=== PATIENT | female | born 1980 | race Caucasian/White ===

== ENCOUNTER 2022-08-20 23:44 | Emergency (ER) | payer OTHER, SELFPAY ==
[2022-08-20 23:49] VITALS: BP 131/83; PULSE 73; RESP 18; TEMP 36.6; O2SAT 99; BMI 29.7
--- NOTE | 2022-08-20 23:57 | DI.RAD.S_ITS ---
PROCEDURE: XR WRIST LT MIN 3V INDICATIONS: pain and deformity TECHNIQUE: 3 views of the wrist were acquired. COMPARISON: None. FINDINGS: Bones: There is a comminuted fracture of the distal radius with mild impaction and dorsal angulation. Fracture involves the radiocarpal and distal radioulnar joints. Soft tissues: No suspicious soft tissue calcifications. IMPRESSION: 1. Comminuted intra-articular fracture of the distal radius with mild impaction and dorsal angulation. Dictated by: Viet Castillo M.D. on 08/21/2022 at 1:08 Approved by: Viet Castillo M.D. on 08/21/2022 at 1:09
--- NOTE | 2022-08-21 00:23 | ED.GENADULT ---
HPI - General Adult General Chief complaint: Extremity Injury, Upper Stated complaint: Left wrist injury Time Seen by Provider: 08/20/22 23:59 Source: patient and family Mode of arrival: Ambulatory History of Present Illness HPI narrative: Patient is a right-hand dominant female who is here for evaluation of injuries that she sustained to her left wrist. She stated that they were at the [facility] and she tripped over [place] landing on her LEs wrist. She reports no other injuries from the event. Has discomfort with palpation or movement her left wrist. Not on anticoagulation. No prior injury to the left wrist. No intervention prior to arrival. Related Data Previous Rx's Medication Instructions Recorded hydrocodone 5 mg-acetaminophen 325 1 tab PO Q4-6H PRN pain #14 tabs 08/21/22 mg tablet ondansetron 4 mg disintegrating 4 mg PO Q6H PRN nausea and 08/21/22 tablet vomiting #10 tabs Allergies Allergy/AdvReac Type Severity Reaction Status Date / Time amoxicillin [From Augmentin] Allergy Intermediate Rash Verified 08/20/22 23:59 clavulanic acid Allergy Intermediate Rash Verified 08/20/22 23:59 [From Augmentin] promethazine [From Phenergan] AdvReac Intermediate Chills Verified 08/20/22 23:59 Review of Systems Musculoskeletal Musculoskeletal: Reports system reviewed and no additional complaints, except as documented Integumentary/Breasts Skin/Breast: Reports system reviewed and no additional complaints, except as documented Neurologic Neurologic: Reports system reviewed and no additional complaints, except as documented Patient History Social History Smoking Status: Former smoker Smoking Status: Former smoker alcohol intake frequency: a few times a week Alcohol type: wine Substance Use Type: does not use Exam Initial Vital Signs Initial Vital Signs: Vital Signs Temperature 97.9 F 08/20/22 23:49 Pulse Rate 73 08/20/22 23:49 Respiratory Rate 18 08/20/22 23:49 Blood Pressure 131/83 08/20/22 23:49 Pulse Oximetry 99 08/20/22 23:49 Oxygen Delivery Method Room Air 08/20/22 23:49 HENMT Head: normal to inspection and normocephalic Cardio Pulses: radial pulses present on the left Skin General: no rashes or lesions noted Neuro Sensory Exam: no sensory deficits noted Extrem Other: Obvious deformity to the left wrist. Left elbow left shoulder unremarkable. Procedures Orthopedic Fracture Reduction Fracture #1: Time Out Performed: Yes Side: left Fracture Reduction Location: radius Analgesia: procedural sedation Technique: direct manipulation Post Reduction X-rays Demonstrate: acceptable reduction Post-reduction neuro exam: intact Post-reduction vascular exam: intact Splint Applied: Yes Patient Tolerated Procedure: Well and No complications Orthopedic Splinting/Casting Injury #1: Side: left Upper Extremity Injury Location: forearm Upper Extremity Immobilizer: sugar tong splint Other Orthopedic Equipment: other (Sling) Post splinting neuro exam: no change Post splinting vascular exam: no change Placed by: Provider Procedural Sedation Consent signed: Yes Time out performed: Yes Indication: fracture/dislocation reduction ASA Class: II Mallampati Airway Classification: Class II Preparation: conveyor monitor applied, pulse oximeter, capnometry used, supplemental O2 applied and IV secured IV Propofol dose (mg): 150 Intraservice time/total sedation time (min): 15 ED Sedation Level: Moderate (Concious) Patient Tolerated Procedure: Well and No complications Course Orders Ordered: ED Orders 08/20/22 23:57 XR wrist LT min 3V Stat 08/21/22 01:33 XR wrist LT 2V Stat Sodium Chloride (Normal Saline 0.9%) 1,000 mls @ 125 mls/hr IV CONT JENNIFER Discontinued Medications Hydrocodone Bitart/Acetaminophen (Hydrocodone/Acet 5/325 Prepack) 1 bottle MISC SEEINSTR ONE Stop: 08/21/22 01:34 Hydromorphone HCl (Hydromorphone 1 Mg Inj) 1 mg IM NOW ONE Stop: 08/21/22 00:28 Last Admin: 08/21/22 00:30 Dose: 1 mg Documented By: Ondansetron HCl (Ondansetron 4 Mg Odt Prepack) 1 bottle MISC SEEINSTR ONE Stop: 08/21/22 01:54 Propofol (Propofol 200 Mg/20 Ml Vial) 100 mg IV NOW ONE Stop: 08/21/22 01:00 Propofol (Propofol 200 Mg/20 Ml Vial) 50 mg IV NOW ONE Stop: 08/21/22 01:34 Vital Signs Vital signs: Vital Signs - 8 hr 08/20/22 23:49 Temperature 97.9 F Pulse Rate 73 Respiratory Rate 18 Blood Pressure 131/83 Pulse Oximetry 99 Oxygen Delivery Method Room Air Medical Decision Making Imaging Data Extremity x-ray #1: Radiologist's Impression: PROCEDURE:? XR WRIST LT MIN 3V ? INDICATIONS: pain and deformity ? TECHNIQUE:? 3 views of the wrist were acquired.? ? COMPARISON:? None. ? FINDINGS:? ? Bones:? There is a comminuted fracture of the distal radius with mild impaction and dorsal angulation.? Fracture involves the radiocarpal and distal radioulnar joints. ? Soft tissues:? No suspicious soft tissue calcifications.? ? IMPRESSION:? ? 1. Comminuted intra-articular fracture of the distal radius with mild impaction and dorsal angulation. MDM Narrative Medical decision making narrative: X-ray today does show left wrist fracture. Patient was sedated and fracture reduced and splint placement as described above. Will discharge home with pain medication and return precautions and follow-up instructions. She reports no other injuries from the event. Discharge Plan Departure Patient Disposition: Home Clinical Impression: Fracture of wrist Instructions: DI for Wrist Fracture, How to Take Care of Your Splint Activity Restrictions/Additional Instructions: The splint that was placed today does need to be treated like a cast. You need to keep it on a keep it clean keep it dry. You were going to need follow-up with a orthopedic surgeon. You can do this when you return back home. If he would like to follow-up here in the local area you can contact the orthopedic doctors with a number provided below. Return to the emergency department for new or worsening symptoms. Prescriptions: New hydrocodone-acetaminophen 5-325 mg tablet 1 tab PO Q4-6H PRN (Reason: pain) Qty: 14 0RF ondansetron 4 mg tablet,disintegrating 4 mg PO Q6H PRN (Reason: nausea and vomiting) Qty: 10 0RF Referrals: Judy Couch MD [Physician] - Stand Alone Forms: Patient Portal/API
[2022-08-21] MEDS: HYDROMORPHONE 1 MG INJ IM (00:30)
[2022-08-21] MEDS: SODIUM CHLORIDE 0.9% 1,000 ML 125 ML IV (01:20)
[2022-08-21] MEDS: propofoL 200 MG/20 ML VIAL 100 MG IV (01:20)
[2022-08-21] MEDS: propofoL 200 MG/20 ML VIAL 50 MG IV (01:25)
--- NOTE | 2022-08-21 01:33 | DI.RAD.S_ITS ---
PROCEDURE: XR WRIST LT 2V INDICATIONS: post reduction TECHNIQUE: 2 views of the wrist were acquired. COMPARISON: [facility], CR, XR WRIST LT MIN 3V, 08/21/2022, 0:02. FINDINGS: Bones: There is slightly improved alignment status post closed reduction of the previously described comminuted intra-articular distal radius fracture. There is decreased impaction and decreased mild dorsal angulation. Soft tissues: A new external splint limits evaluation of fine bony detail and soft tissue detail. IMPRESSION: 1. Slightly improved alignment status post closed reduction of a comminuted intra-articular fracture of the distal radius. Dictated by: Viet Castillo M.D. on 08/21/2022 at 2:15 Approved by: Viet Castillo M.D. on 08/21/2022 at 2:16
[2022-08-21 02:00] VITALS: BP 113/79; PULSE 86; RESP 18; TEMP 36.6; O2SAT 100
[2022-08-21] MEDS: ONDANSETRON 4 MG ODT PREPACK 1 BOTTLE MISC (02:03)
[2022-08-21] MEDS: HYDROCODONE/ACET 5/325 PREPACK 1 BOTTLE MISC (02:03)
--- NOTE | 2022-08-21 02:17 | PC.NURSE ---
vital signs printed and scanned into med records
== END 2022-08-21 02:20 | disposition home or self-care (01) ==
PROVIDERS: Emergency Provider Emergency Medicine
DX: S52.572A Other intraarticular fracture of lower end of left radius, initial encounter for closed fracture (principal); W01.0XXA Fall on same level from slipping, tripping and stumbling without subsequent striking against object, initial encounter
CPT/HCPCS: 25605; 29125; 36415; 73100; 73110; 96372; 99152; 99284; 99285; J1170; J2704